=== PATIENT | female | born 1990 | race Caucasian/White ===

== ENCOUNTER 2021-11-27 21:15 | Emergency (ER) | payer OTHER, SELFPAY ==
[2021-11-27 21:17] VITALS: BP 110/66; PULSE 90; RESP 16; TEMP 36.1; O2SAT 100; BMI 27.8
[2021-11-27 21:18] VITALS: BP 110/66; PULSE 90; RESP 16; TEMP 36.5; O2SAT 100
--- NOTE | 2021-11-27 22:10 | US_ITS ---
STUDY: ULTRASOUND TRANSVAGINAL CLINICAL: Female, 31 years old. pelvic pain, hx cysts, endometriosis LMP: 11/14/2021. TECHNIQUE: Transvaginal COMPARISON: None. FINDINGS: UTERUS: 6.5 cm length. Normal configuration. ENDOMETRIUM: Not thickened. Small amount of fluid in the cervical canal. OVARIES: Right ovary: 6.9 x 6 x 4.3 cm. Complex cyst 5.2 x 4.7 x 3.7 cm with low-level internal echoes. Left ovary: 3.7 x 2.6 x 1.7 cm. Unremarkable. Vascular flow demonstrated in both ovaries. No findings to suggest ovarian torsion. FREE FLUID: Mild free fluid in the anterior and posterior cul-de-sac with echoes. US/Transvaginal Non- IMPRESSION: Right ovarian 5 cm complex cyst consistent with hemorrhagic cyst/endometrioma. Small amount of complex pelvic free fluid most likely hemorrhage secondary to ruptured ovarian cyst. Electronically Signed: Beth Ellsworth MD at 23:56 EDT ,
[2021-11-27 22:20] LABS: Absolute Lymphocyte Count 1.47 X10^3/uL (0.83-4.51); Absolute Neutrophil Count 19.9 X10^3/uL (2.0-7.7); Basophil# 0.06 X10^3/uL; Basophil% 0.3 % (0-1); Eosinophil# 0.03 X10^3/uL; Eosinophils% 0.1 % (0-5); Hematocrit 38.3 % (37-47); Lymphocyte # 1.47 X10^3/ul (0.83-4.51); Lymphocyte % 6.6 % (19-41); Mean Corp Hgb Conc 33.9 g/dL (32-36); Mean Corpuscular Hgb 28.4 pg (27.0-32.0); Mean Corpuscular Volume 83.8 fL (81-99); Mean Platelet Vol. 9.1 fl (6.2-12.0); Monocyte% 3.6 % (0-10); NRBC Flagged by Analyzer 0 % (0-5); Neutrophil # 19.91 X10^3/uL (2.7-7.7); Platelet Count 351 K/mm3 (150-450); RBC Distribution Width CV 12.2 % (11.6-14.6); RBC Distribution Width SD 36.8 fl (35.1-43.9); Red Blood Count 4.57 M/mm3 (4.2-5.4); White Blood Count 22.4 K/mm3 (4.4-11.0)
--- NOTE | 2021-11-27 22:26 | EDS_ITS ---
HPI HPI - Female History of Present Illness Chief Complaint: Female C/O Informant: patient Narrative Narrative: Patient is a 31-year-old female with history of stage IV endometriosis and prior exploratory laparoscopically and cyst removal presenting with worsening right-sided abdominal pain. She is concerned she has a ruptured right ovarian cyst. She states her pain started around 530 this evening and then about an hour later radiated to her pelvis. Around 730 start having pain rating to her right shoulder. She has associated nausea, chills and sweats. She states the pain feels like it is ripping her insides apart. She had a leftover oxycodone from her prior surgery last year and she states it took her pain from a 20 out of 10 to a 10 out of 10. She also took 800 mg of Motrin with no relief. She feels that she has a hard time urinating because whenever she tries to bear down she has increased pain. She states that she does have 3 known ovarian cyst. She follows with Dr. Oscar Pickering through [facility] and reproductive medicine. Her last menstrual period was a few days ago and she does not think she is but she states it is a possibility. She states she was in her normal state of health prior to her symptoms starting this evening. She denies any vaginal bleeding or vaginal discharge. She denies any other surgical history. No other complaints at this time. PFSH PFSH Home Medications Levocetirizine Dihydrochloride [Xyzal] 5 mg PO DAILY 03/08/16 [History Last Taken Unknown] oxycodone-acetaminophen 5 mg-325 mg tablet 1 - 2 tab PO Q4H PRN PRN Pain #20 tabs 03/08/16 [Rx Last Taken Unknown] ondansetron HCl 4 mg tablet 4 mg PO Q6H PRN nausea and vomiting #14 tabs 11/28/21 [Rx Last Taken Unknown] oxycodone-acetaminophen 5 mg-325 mg tablet (Percocet) 1 tab PO Q6H PRN pain 3 days #12 tabs 11/28/21 [Rx Last Taken Unknown] Allergy/AdvReac Type Severity Reaction Status Date / Time minocycline AdvReac Pain in Verified 11/27/21 21:17 joints Social History Smoking Status: Never smoker ROS ROS ED Constitutional Constitutional ED: Reports chills, subjective and sweats Eyes Eyes: Denies change in vision ENT ENT ED: Denies rhinorrhea or sore throat Cardiovascular Cardiovascular: Denies chest pain Respiratory/Chest Respiratory/Chest: Denies cough Gastrointestinal Gastrointestinal: Reports abdominal pain and nausea; Denies constipation, diarrhea or vomiting Genitourinary Genitourinary ED: Denies dysuria, hematuria or urinary frequency Musculoskeletal Musculoskeletal: Denies arthralgias or myalgias Integumentary Denies rash Neurologic Neurologic: Denies headache(s) or weakness Psychiatric Psychiatric: Denies anxiety EXAM Physical Exam Const Vital Signs: 11/27/21 21:17 11/27/21 21:18 11/27/21 22:40 Temperature 97 F L 97.7 F L 98.2 F Temperature Source Temporal Temporal Temporal Pulse Rate 90 90 80 Respiratory Rate 16 16 19 H Blood Pressure 110/66 110/66 134/80 H Blood Pressure Mean 80 80 98 Pulse Ox 100 100 98 Oxygen Delivery Method Room Air Room Air Room Air 11/27/21 23:16 Temperature Temperature Source Pulse Rate Respiratory Rate 15 Blood Pressure Blood Pressure Mean Pulse Ox 97 Oxygen Delivery Method Room Air Positive well nourished and well developed General Appearance ED: well developed and NAD HEENT Reports moist mucous membranes Negative for trauma Eyes PERRL and EOMs intact bilaterally Neck supple Chest Wall inspection of chest normal Resp normal respiratory effort and clear to auscultation bilaterally Cardio regular rate, regular rhythm and no murmurs GI GI Narrative: Mildly distended. No rebound tenderness. Auscultation: normoactive bowel sounds Palpation: tender suprapubic; Negative for guarding Back/Spine no CVA tenderness Extremity normal to inspection and full ROM Neuro oriented x3 Motor Exam: Negative for general weakness Psych mental status grossly normal Skin no rashes or lesions noted MDM MDM MDM Narrative Medical decision making narrative: Patient's evaluated sudden onset of pelvic pain. Has a history of endometriosis and ovarian cyst. Does have tenderness to her pelvic region. Denies any abnormal vaginal bleeding or discharge. CBC is remarkable for leukocytosis of 22.4. No prior labs available for comparison. CMP shows a mildly elevated creatinine of 1.07 otherwise normal. Patient is given IV fluids while in the emergency room. Her hCG quant is negative. Urinalysis shows 500 leukoesterase with 0-5 white blood cells and rare bacteria. I suspect this is reactive and not truly infectious however urine culture is sent. Pelvic ultrasound does not show any torsion but does show a 5 cm complex right ovarian cyst with associated hemorrhage and mild amount of free fluid. This is consistent with a ruptured hemorrhagic cyst. Patient is hemodynamically stable in the emergency room. She is given 2 doses of IV morphine with adequate pain control. Is given oral oxycodone as well as IV Toradol prior to discharge. Case discussed with [facility] PHYSICAL SECURITY ENGINEER gas well drilling manager who recommends pain control and outpatient follow-up. Patient states she would prefer to follow-up with her personal PHYSICAL SECURITY ENGINEER and will call in the morning. Will be discharged home with a prescription for nausea medicine as well as pain medicine. Is counseled on return precautions. She verbalizes agreement understand this plan. Lab Data Attestation: I reviewed the patient's lab results. Labs: Laboratory Results - last 24 hr 11/27/21 11/27/21 11/27/21 21:56 21:56 21:56 WBC 22.4 H RBC 4.57 Hgb 13.0 Hct 38.3 MCV 83.8 MCH 28.4 MCHC 33.9 RDW Std Deviation 36.8 RDW Coeff of [place] 12.2 Plt Count 351 MPV 9.1 Immature Gran % (Auto) 0.400 Neut % (Auto) 89.0 H Lymph % (Auto) 6.6 L [place] % (Auto) 3.6 Eos % (Auto) 0.1 Baso % (Auto) 0.3 Absolute Neuts (auto) 19.9 H Absolute Lymphs (auto) 1.47 Nucleated RBC % 0 Sodium 139 Potassium 3.5 Chloride 105 Carbon Dioxide 26.0 Anion Gap 8 BUN 17 Creatinine 1.07 H Estim Creat Clear Calc 69.18 Est GFR (MDRD) Af Amer 77 Est GFR (MDRD) Non-Af 64 BUN/Creatinine Ratio 15.9 Glucose 161 H Calcium 9.3 Total Bilirubin 0.30 AST 16 ALT 17 Alkaline Phosphatase 57 Total Protein 7.4 Albumin 3.9 Globulin 3.5 Albumin/Globulin Ratio 1.1 HCG, Quant < 1 Urine Color Urine Clarity Urine pH Ur Specific [place] Urine Protein Urine Glucose (UA) Urine Ketones Urine Occult Blood Urine Nitrite Urine Bilirubin Urine Urobilinogen Ur Leukocyte Esterase Urine RBC Urine WBC Ur Squamous Epith Cells Urine Bacteria Urine Mucus 11/27/21 22:31 WBC RBC Hgb Hct MCV MCH MCHC RDW Std Deviation RDW Coeff of [place] Plt Count MPV Immature Gran % (Auto) Neut % (Auto) Lymph % (Auto) [place] % (Auto) Eos % (Auto) Baso % (Auto) Absolute Neuts (auto) Absolute Lymphs (auto) Nucleated RBC % Sodium Potassium Chloride Carbon Dioxide Anion Gap BUN Creatinine Estim Creat Clear Calc Est GFR (MDRD) Af Amer Est GFR (MDRD) Non-Af BUN/Creatinine Ratio Glucose Calcium Total Bilirubin AST ALT Alkaline Phosphatase Total Protein Albumin Globulin Albumin/Globulin Ratio HCG, Quant Urine Color Yellow Urine Clarity Clear Urine pH 7.0 Ur Specific [place] 1.015 Urine Protein Negative Urine Glucose (UA) Normal Urine Ketones 5 H Urine Occult Blood Negative Urine Nitrite Negative Urine Bilirubin Negative Urine Urobilinogen Normal Ur Leukocyte Esterase 500 H Urine RBC 0 SEEN Urine WBC 0-5 SEEN Ur Squamous Epith Cells 0-5 SEEN Urine Bacteria RARE Urine Mucus 0 SEEN Radiography Diagnostic Testing: Clinical Impression(s) from Imaging Studies Transvaginal US 11/27/21 22:10 IMPRESSION: Right ovarian 5 cm complex cyst consistent with hemorrhagic cyst/endometrioma. Small amount of complex pelvic free fluid most likely hemorrhage secondary to ruptured ovarian cyst. Electronically Signed: Beth Ellsworth MD at 23:56 EDT Reading Location ID and State: [facility] [place] / [place] Tel , Service support , Discharge Plan Triage Chief Complaint: Female C/O ED Provider: Hedy Estrada Dx/Rx/DC Orders Clinical Impression: Rupture of cyst of right ovary, Free fluid in pelvis Instructions: ED Ovarian Cyst Prescriptions: New oxycodone-acetaminophen [Percocet] 5-325 mg tablet 1 tab PO Q6H PRN (Reason: pain) 3 Days Qty: 12 0RF ondansetron HCl 4 mg tablet 4 mg PO Q6H PRN (Reason: nausea and vomiting) Qty: 14 0RF No Action oxycodone-acetaminophen 1 TABLET tablet 1 - 2 tab PO Q4H PRN PRN (Reason: Pain) Qty: 20 0RF Levocetirizine Dihydrochloride [Xyzal] 5 MG tablet 5 mg PO DAILY Primary Care Provider: Juventino Bryant Referrals: Juventino Bryant MD [Primary Care Provider] - Activity Restrictions/Additional Instructions: Follow-up with your vacuum plastic forming machine operator. Call tomorrow to make an appointment. You may also take ibuprofen in addition to the pain medication prescribed today. Disposition Disposition: Home, Self Care
[2021-11-27 22:35] LABS: Mucous, Urine 0 SEEN /hpf (<or=2+); Red Blood Cells-Urine 0 SEEN /hpf (0-5)
[2021-11-27] MEDS: Morphine 4 MG/ML Syringe IV ×2 (22:36→23:43)
[2021-11-27] MEDS: Ondansetron 4 MG/2 ML Vial IV (22:36)
[2021-11-27] MEDS: 0.9% Normal Saline 1,000 ML 1000 ML IV (22:38)
[2021-11-27 22:40] VITALS: BP 134/80; PULSE 80; RESP 19; TEMP 36.8; O2SAT 98
[2021-11-27 22:42] LABS: Color, Urine Yellow (Yellow); Glucose, Dipstick Normal (Normal); Ketone-Dipstick 5 mg/dl (Negative); Leukocyte Esterase-Dipstick 500 /ul (Negative); Nitrite-Dipstick Negative (Negative); Occult Blood-Urine Negative /ul (Negative); Protein-Dipstick Negative (Negative); Specific Gravity, Urine 1.015 (1.002-1.030); Urine Bilirubin Dipstick Negative (Negative); Urine Clarity Clear (Clear); Urine Urobilinogen Normal (Normal)
[2021-11-27 22:53] LABS: ALB/GLOB Ratio 1.1 RATIO (0.9-2.4); AST(SGOT) 16 U/L (15-37); Alanine Aminotransfer ALT/SGPT 17 U/L (13-56); Albumin, Serum 3.9 g/dL (3.2-5.0); Alkaline Phosphatase 57 U/L (45-117); Anion Gap 8 (5-15); BUN 17 mg/dL (7-18); BUN/Creat Ratio 15.9 RATIO (10-20); Calcium,Total 9.3 mg/dL (8.5-10.1); Chloride 105 mmol/L (98-107); Creatinine, Serum 1.07 mg/dL (0.55-1.02); EST Glomerular Filtration Rate 64 mL/min (>60); Est Glom Filt Rate - Afr Amer 77 mL/min (>60); Estimated Creatinine Clearance 69.18 ml/min; Globulin 3.5 g/dL (2.2-4.2); Glucose 161 mg/dL (74-106); Potassium 3.5 mmol/L (3.5-5.1); Protein, Total 7.4 g/dL (6.4-8.2); Sodium Level 139 mmol/L (136-145)
[2021-11-27 22:55] LABS: hCG Titer Quant., Serum < 1 mIU/mL (1-3)
[2021-11-27 22:56] LABS: Bacteria RARE /hpf (None Seen); Squamous Epithelial Cells - UA 0-5 SEEN /hpf (5-10); White Blood Cells 0-5 SEEN /hpf (0-5)
[2021-11-27 23:16] VITALS: RESP 15; O2SAT 97
[2021-11-28] MEDS: Ketorolac 15 MG/ML Vial IV (00:26)
[2021-11-28] MEDS: oxyCODONE 5 MG Tablet PO (00:26)
[2021-11-28 00:29] VITALS: BP 114/68
== END 2021-11-28 00:37 | disposition home or self-care (01) ==
PROVIDERS: Emergency Provider Emergency Medicine; PCP Family Medicine; Visit Provider Emergency Medicine
DX: N83.201 Unspecified ovarian cyst, right side (principal); R11.0 Nausea; R68.83 Chills (without fever); M25.511 Pain in right shoulder
CPT/HCPCS: 76830; 80053; 81001; 84702; 85025; 87086; 87088; 93976; 96361; 96374; 96375; 96376; 99284; J7030; A4216; J2405